=== PATIENT | female | born 1970 | race Caucasian/White ===

== ENCOUNTER 2016-07-10 14:38 | Inpatient (IN) | payer OTHER ==
[2016-07-10 14:43] VITALS: BMI 45.5
--- NOTE | 2016-07-10 14:45 | PDOC ---
Rapid Medical Evaluation Chief Complaint: Chest Pain Time Seen by Provider: 07/10/16 14:42 Medical Evaluation: Allergies Allergy/AdvReac Type Severity Reaction Status Date / Time aspirin Allergy Verified 04/09/16 12:21 azithromycin [From Zithromax] Allergy Verified 04/09/16 12:21 buspirone HCl [From BuSpar] Allergy Verified 04/09/16 12:21 codeine Allergy Verified 04/09/16 12:21 codeine phosphate Allergy Verified 04/09/16 12:21 [From Tylenol-Codeine] diphenhydramine HCl Allergy Verified 04/09/16 12:21 [From Benadryl] fexofenadine HCl Allergy Verified 04/09/16 12:21 [From Lynette] ibuprofen [From Motrin] Allergy Verified 04/09/16 12:21 Penicillins Allergy Verified 04/09/16 12:21 terfenadine [From Seldane] Allergy Verified 04/09/16 12:21 07/10/16 14:43 I have performed a brief in-person evaluation of this patient. The patient presents with a chief complaint of: chest pain, asthma. pt is an active smoker who presents with chest pain x 3 days, palpitations post albuterol use. Pertinent physical exam findings: obese female, no respiratory distress, no wheezing, + slightly anxious I have ordered the following: labs, troponin, cxr, ecg The patient will proceed to the ED for further evaluation.
[2016-07-10] MEDS ORDERED: ALBUTEROL SO4 2.5/IPRATROPIUM 0.5 INH SOL 3 ML VIAL.NEB. NEB ONE (14:47)
[2016-07-10] MEDS ORDERED: IPRATROPIUM BR 0.02% 0.5 MG/2.5 ML VIAL.NEB. NEB ONE (14:47)
[2016-07-10 15:39] LABS: BASOPHIL 0.7 % (0-2.0); EOSINOPHIL 0.9 % (0-4.5); MCH 28.1 pg (25.7-33.7); MCHC 34.2 g/dl (32.0-36.0); MEAN CELL VOLUME 81.9 fl (80-96); MEAN PLT VOLUME 7.5 fl (7.5-11.1); NEUTROPHILS 59.2 % (42.8-82.8); PLATELET COUNT 247 K/MM3 (134-434); RDW 13.5 % (11.6-15.6); WHITE BLOOD COUNT 7.6 K/mm3 (4.0-10.0)
[2016-07-10] MEDS ORDERED: methylPREDNISolone NA SUCC 125 MG/2 ML VIAL IVPB ONE (15:42)
--- NOTE | 2016-07-10 15:47 | PDOC ---
History of Present Illness - History of Present Illness Initial Comments: 07/10/16 15:53 The patient is a 46 year old female with a significant past medical hx of asthma , mitral valve prolapse, and hyperthyroidism (PTU) who presents to the ED complaining of constant chest pain for three days. The patient reports she has associated SOB. The patient describes her chest pain as stabbing and is localized to the middle of her chest radiating towards her left back. The patient notes her pain is exacerbated with eating and inspiration. The patient reports she took Tylenol yesterday and her pain went away completely. She reports once the Tylenol wore off the pain came back. The patient notes she has had several episodes of bronchitis since April and has been recently coughing. She reports she used her asthma pump this morning and was able to breathe better after the treatment, but started to feel palpitations. The patient denies recent travel/surgeries/immobility, lower extremity edema, calf pain or tenderness, hormone use, personal or family history of thrombosis. The patient denies fever, chills, abdominal pain, nausea, vomiting Social: Smokes cigarettes <Nati Bolanos - Last Filed: 07/10/16 16:20> <Jorgito Chavez - Last Filed: 07/10/16 16:44> - General Chief Complaint: Chest Pain Stated Complaint: CHEST PAIN Time Seen by Provider: 07/10/16 14:42 Past History <Nati Bolanos - Last Filed: 07/10/16 16:20> - Past Medical History Anemia: Yes Asthma: Yes Cardiac Disorders: Yes (heart murmer, leaky valve) Diabetes: Yes Psychiatric Problems: Yes (depression) Thyroid Disease: Yes - Surgical History Cholecystectomy: Yes - Psycho/Social/Smoking Cessation Hx Anxiety: Yes Suicidal Ideation: No Smoking History: Current some day smoker Have you smoked in the past 12 months: Yes Number of Cigarettes Smoked Daily: 20 Information on smoking cessation initiated: No Hx Alcohol Use: No Drug/Substance Use Hx: No Substance Use Type: None <Jorgito Chavez - Last Filed: 07/10/16 16:44> - Past Medical History Allergies/Adverse Reactions: Allergies Allergy/AdvReac Type Severity Reaction Status Date / Time aspirin Allergy Verified 07/10/16 14:45 azithromycin [From Zithromax] Allergy Verified 07/10/16 14:45 buspirone HCl [From BuSpar] Allergy Verified 07/10/16 14:45 codeine Allergy Verified 07/10/16 14:45 codeine phosphate Allergy Verified 07/10/16 14:45 [From Tylenol-Codeine] diphenhydramine HCl Allergy Verified 07/10/16 14:45 [From Benadryl] fexofenadine HCl Allergy Verified 07/10/16 14:45 [From Lynette] ibuprofen [From Motrin] Allergy Verified 07/10/16 14:45 Penicillins Allergy Verified 07/10/16 14:45 terfenadine [From Seldane] Allergy Verified 07/10/16 14:45 Home Medications: Ambulatory Orders Famotidine [Pepcid] 20 mg PO DAILY #30 tablet 04/09/16 Nitrofurantoin Monohyd/M-Cryst [Macrobid -] 100 mg PO BID #14 capsule 04/09/16 Review of Systems - Review of Systems Able to Perform ROS?: Yes Comments:: 07/10/16 15:53 CONSTITUTIONAL: Absent: fever, chills, diaphoresis, generalized weakness, malaise, loss of appetite HEENT: Absent: rhinorrhea, nasal congestion, throat pain, throat swelling, difficulty swallowing, mouth swelling, ear pain, eye pain, visual Changes CARDIOVASCULAR: +Chest pain, palpitations. Absent: syncope, irregular heart rate, lightheadedness, peripheral edema RESPIRATORY: +Shortness of breath, cough. Absent: wheezing, stridor, hemoptysis GASTROINTESTINAL: Absent: abdominal pain, abdominal distension, nausea, vomiting, diarrhea, constipation, melena, hematochezia GENITOURINARY: Absent: dysuria, frequency, urgency, hesitancy, hematuria, flank pain, genital pain MUSCULOSKELETAL: Absent: myalgia, arthralgia, joint swelling SKIN: Absent: rash, itching, pallor HEMATOLOGIC/IMMUNOLOGIC: Absent: easy bleeding, easy bruising, lymphadenopathy, frequent infections ENDOCRINE: Absent: unexplained weight gain, unexplained weight loss, heat intolerance, cold intolerance NEUROLOGIC: Absent: headache, focal weakness or paresthesias, dizziness, unsteady gait, seizure, mental status changes, bladder or bowel incontinence PSYCHIATRIC: Absent: anxiety, depression, suicidal or homicidal ideation, hallucinations. <Nati Bolanos - Last Filed: 07/10/16 16:20> *Physical Exam - Vital Signs Last Vital Signs Temp Pulse Resp BP Pulse Ox 98.3 F 108 H 20 142/90 96 07/10/16 14:40 07/10/16 14:40 07/10/16 14:40 07/10/16 14:40 07/10/16 14:40 - Physical Exam Comments: 07/10/16 15:54 GENERAL: Well developed, well nourished. Awake and alert. In no acute distress. HEENT: Normocephalic, atraumatic. PERRLA, EOMI. No conjunctival pallor. Sclera are non- icteric. Moist mucous membranes. Oropharynx is clear. NECK: Supple. Full ROM. No JVD. Carotid pulses 2+ and symmetric, without bruits. No thyromegaly. No lymphadenopathy. CARDIOVASCULAR: Regular rate and rhythm. No murmurs, rubs, or gallops. Distal pulses are 2+ and symmetric. PULMONARY: No evidence of respiratory distress. Lungs clear to auscultation bilaterally. No wheezing, rales or rhonchi. ABDOMINAL: Soft. Non-tender. Non-distended. No rebound or guarding. No organomegaly. Normoactive bowel sounds. MUSCULOSKELETAL Normal range of motion at all joints. No bony deformities or tenderness. No CVA tenderness. EXTREMITIES: No cyanosis. No clubbing. No edema. No calf tenderness. SKIN: Warm and dry. Normal capillary refill. No rashes. No jaundice. NEUROLOGICAL: Alert, awake, appropriate. Cranial nerves 2-12 intact. No deficits to light touch and temperature in face, upper extremities and lower extremities. No motor deficits in the in face, upper extremities and lower extremities. PSYCHIATRIC: Cooperative. Good eye contact. Appropriate mood and affect. <Nati Bolanos - Last Filed: 07/10/16 16:20> - Vital Signs Last Vital Signs Temp Pulse Resp BP Pulse Ox 98.3 F 108 H 20 142/90 96 07/10/16 14:40 07/10/16 14:40 07/10/16 14:40 07/10/16 14:40 07/10/16 14:40 <Jorgito Chavez - Last Filed: 07/10/16 16:44> ED Treatment Course - LABORATORY CBC & Chemistry Diagram: 07/10/16 15:32 07/10/16 15:32 - Medications Given in the ED: ED Medications Discontinued Medications Generic Name Dose Route Start Last Admin Trade Name Freq PRN Reason Stop Dose Admin Albuterol/Ipratropium 1 amp 07/10/16 14:47 07/10/16 14:58 Duoneb - NEB 07/10/16 14:48 1 amp ONCE ONE Administration Ipratropium Steen 1 amp 07/10/16 14:47 07/10/16 14:58 Atrovent 0.02% Nebulizer - NEB 07/10/16 14:48 1 amp ONCE ONE Administration <Nati Bolanos - Last Filed: 07/10/16 16:20> - LABORATORY CBC & Chemistry Diagram: 07/10/16 15:32 07/10/16 15:32 - RADIOLOGY Radiology Studies Ordered: Category Date Time Status CHEST X-RAY PORTABLE* [RAD] Stat Radiology 07/10/16 15:37 Ordered - Medications Given in the ED: ED Medications Discontinued Medications Generic Name Dose Route Start Last Admin Trade Name Freq PRN Reason Stop Dose Admin Albuterol/Ipratropium 1 amp 07/10/16 14:47 07/10/16 14:58 Duoneb - NEB 07/10/16 14:48 1 amp ONCE ONE Administration Ipratropium Steen 1 amp 07/10/16 14:47 07/10/16 14:58 Atrovent 0.02% Nebulizer - NEB 07/10/16 14:48 1 amp ONCE ONE Administration <Jorgito Chavez - Last Filed: 07/10/16 16:44> Medical Decision Making - Medical Decision Making 07/10/16 15:46 EKG noted: Normal sinus rhythm at 90, borderline left axis deviation, no ST changes The patient is well-appearing, and in no acute distress Differential diagnosis does include pulmonary embolism Her wells score is 1.5 (heart rate) Of note, I did discuss the possibility of a need for CT chest with IV contrast, should her d-dimer be positive She states that she will adamantly refused contrast administration, because her brother after receiving IV contrast She also refuses aspirin and stats that she has a severe allergy She refuses Plavix as well 07/10/16 16:19 Chest x-ray emergency Department interpretation: No acute cardiopulmonary disease CBC noted Chemistries, d-dimer pending 07/10/16 16:27 Chemistries and cardiac enzymes noted, with negative troponin D-dimer pending 07/10/16 16:43 D-dimer noted, positive She continues to adamantly refuse IV contrast She does agree to empiric treatment of possible pulmonary embolism with Lovenox She understands the risks and benefits, which I explained to her using lay terminology She will consents to ventilation perfusion scan when it is available Clinical impression: Chest pain Elevated d-dimer Possible pulmonary embolism Case discussed in detail with admitting provider including history, physical exam and ancillary studies. Admitting physician has assumed care for the patient, will follow all pending diagnostics and will complete the evaluation and treatment. A portion of this note was documented by scribe services under my direction. I have reviewed the details of the note, within reason, and agree with the documentation with the following case summary and management plan written by me. <Jorgito Chavez - Last Filed: 07/10/16 16:44> *DC/Admit/Observation/Transfer - Attestations Scribe Attestion: 07/10/16 15:53 Documentation prepared by Nati Bolanos, acting as medical technologist microbiology for Jorgito Chavez MD/DO. <Nati Bolanos - Last Filed: 07/10/16 16:20> - Discharge Dispostion Admit: Yes <Jorgito Chavez - Last Filed: 07/10/16 16:44> Diagnosis at time of Disposition: Chest pain - Referrals Referrals: Miladis Dillon MD [Primary Care Provider] -
--- NOTE | 2016-07-10 15:55 | EKG ---
Test Reason : Blood Pressure : / mmHG Vent. Rate : 089 BPM Atrial Rate : 089 BPM P-R Int : 156 ms QRS Dur : 086 ms QT Int : 364 ms P-R-T Axes : 031 -15 024 degrees QTc Int : 442 ms NORMAL SINUS RHYTHM NORMAL ECG WHEN COMPARED WITH ECG OF 09-APR-2016 12:20, NO SIGNIFICANT CHANGE WAS FOUND Confirmed by LYDIA BARRAGAN MD ([id number]) on 07/10/2016 3:54:56 PM Referred By: Confirmed By:LYDIA BARRAGAN MD
[2016-07-10 16:04] LABS: ALBUMIN 3.5 g/dl (3.4-5.0); ANION GAP 10 (8-16); BILIRUBIN,TOTAL 0.2 mg/dL (0.2-1.0); CALCIUM 9.2 mg/dL (8.5-10.1); CO2 26 mmol/L (21-32); CREATININE 0.6 mg/dL (0.55-1.02); GLUCOSE,RANDOM 126 mg/dL (74-106); SGOT/AST 15 U/L (15-37); SGPT/ALT 28 U/L (12-78); TOT PROT 7.7 g/dl (6.4-8.2)
[2016-07-10 16:06] LABS: ALK PHOS 119 U/L (45-117); TROPONIN I < 0.02 ng/ml (0.00-0.05)
[2016-07-10] MEDS ORDERED: methylPREDNISolone NA SUCC 125 MG/2 ML VIAL ONE (16:06)
[2016-07-10] MEDS ORDERED: POTASSIUM CHLORIDE TABS 20 MEQ TABLET.ER (FP) PO ONE ×2 (16:27→16:42)
[2016-07-10 16:35] LABS: THYROID STIMULATING HORMONE < 0.01 uIU/ml (0.358-3.74)
[2016-07-10] MEDS ORDERED: ENOXAPARIN NA (PORCINE) 100 MG/1 ML DISP.SYRIN SQ ONE ×2 (16:43→17:24)
[2016-07-10 16:46] LABS: FREE T4 1.18 ng/dl (0.76-1.46)
[2016-07-10 16:48] LABS: INR 0.96 (0.82-1.09); PROTHROMBIN TIME (PATIENT) 10.6 SEC (9.98-11.88)
--- NOTE | 2016-07-10 18:55 | PN ---
Teaching Attending Note Name of Resident: Marilu Emanuel ATTENDING PHYSICIAN STATEMENT I saw and evaluated the patient. I reviewed the resident's note and discussed the case with the resident. I agree with the resident's findings and plan as documented. SUBJECTIVE: OBJECTIVE: Vital Signs Period Temp Pulse Resp BP Sys/Batres Pulse Ox Last 24 Hr 98.3 F 108 20 142/90 96 ASSESSMENT AND PLAN:
[2016-07-10] MEDS: ALBUTEROL SO4 0.083% IH SOL 2.5 MG/3 ML VIAL.NEB. NEB SCH (23:33)
--- NOTE | 2016-07-11 00:04 | HP ---
CHIEF COMPLAINT: SOB, chest pain PCP: 2 [facility] HISTORY OF PRESENT ILLNESS: 46 yr old woman with HTN, pre-diabetes, thyroid nodules/hyperthyroidism, gastritis, presents c/o chest pain 8/10, stabbing-like, midsternum, radiating to left para-sternum(one episode to back), continuos but relived with tylenol, nonpositional, a/w shortness of breath. Pain started Thursday, does not recall what she was doing at the time, cannot name alleviating or exacerbating factors. She initially thought it was acid reflux due to being midsternal location and at times radiating down to epigastrium This morning she used the bathroom, when she came out she felt "a chill" and felt the chest pain be worse than it had been previously. She has had chest pain in the past but this is different because it is more intense. She usually gets chest pain when she is stressed, in the same location. She felt the shortness of breath worse after walking around on thursday with her family and intermittently since then but is unable to name alleviating or exacerbating factors. She has headaches at times, throbbing behind her right eye, located in the occipatal area radiationg anteriorly, alleviated with sleeping - usually occurs when she has elevated blood pressure (doesn't recall how high) Uses advair intermittely, triggered by seasonal allergies, no hx of intubations. denies chest trauma. ER course was notable for: (1) d-dimer elevated (2) pt declined CTA (3) lovenox Recent Travel: none, last care ride trip to [place] in the january PAST MEDICAL HISTORY: anemia, HTN, pre-diabetes, thyroid nodules(last u/s of thyroid 09/2011) hyperthyroidism (was on PTU but couldn't tolerate GI se, was on methamazole but stopped taking it) gastritis heart murmur post-menopausal PAST SURGICAL HISTORY: cholecystectomy 1988 2 c-sections cervix "cancer cells frozen off" Social History: 11 children Smokin pk/day for 4 yrs, had quit for 18 yrs, prior she smoked for 10 yrs 1 pk /day Alcohol: rare Drugs: denies Family History: sister with breast cancer age 37, sister 33 cervical cancer, mother with "cervical cancer cell", "many others with cancers" Allergies aspirin Allergy (Verified 07/10/16 14:45) - trouble breathing azithromycin [From Zithromax] Allergy (Verified 07/10/16 14:45) - trouble breathing buspirone HCl [From BuSpar] Allergy (Verified 07/10/16 14:45)- trouble breathing codeine Allergy (Verified 07/10/16 14:45) - rash on throat codeine phosphate [From Tylenol-Codeine] Allergy (Verified 07/10/16 14:45) - GI upset diphenhydramine HCl [From Benadryl] Allergy (Verified 07/10/16 14:45) - "hyperactive" fexofenadine HCl [From Lynette] Allergy (Verified 07/10/16 14:45) "breathing problem" ibuprofen [From Motrin] Allergy (Verified 07/10/16 14:45) Penicillins Allergy (Verified 07/10/16 14:45) - Rash on neck and throat terfenadine [From Seldane] Allergy (Verified 07/10/16 14:45) - trouble breathing HOME MEDICATIONS: Home Medications Medication Instructions Recorded Albuterol 0.083% Nebulizer Marcelina 1 neb NEB QID 07/10/16 [Ventolin 0.083%] REVIEW OF SYSTEMS CONSTITUTIONAL: Present:chills, weight change Absent: fever, diaphoresis, generalized weakness, malaise, loss of appetite, HEENT: Present: difficulty swallowing, - occasional to solids, which improves when she drinks water, visual changes - past few months has noticed blurred vision Absent: rhinorrhea, nasal congestion, throat pain, throat swelling, mouth swelling, ear pain, eye pain, CARDIOVASCULAR: Present: chest pain, Absent: syncope, palpitations, irregular heart rate, lightheadedness, peripheral edema RESPIRATORY: Present: cough, productive of watery white sputum, shortness of breath, Absent: dyspnea with exertion, orthopnea, wheezing, stridor, hemoptysis GASTROINTESTINAL: Absent: abdominal pain, abdominal distension, nausea, vomiting, diarrhea, constipation, melena, hematochezia GENITOURINARY: Absent: dysuria, frequency, urgency, hesitancy, hematuria, flank pain, genital pain MUSCULOSKELETAL: Absent: myalgia, arthralgia, joint swelling, back pain, neck pain SKIN: Absent: rash, itching, pallor HEMATOLOGIC/IMMUNOLOGIC: Absent: easy bleeding, easy bruising, lymphadenopathy, frequent infections ENDOCRINE: Present: heat intolerance, cold intolerance Absent: unexplained weight gain, unexplained weight loss, NEUROLOGIC: Present:headache Absent: , focal weakness or paresthesias, dizziness, unsteady gait, seizure, mental status changes, bladder or bowel incontinence PSYCHIATRIC: Present: anxiety Absent: , depression, suicidal or homicidal ideation, hallucinations. PHYSICAL EXAMINATION Vital Signs - 24 hr 07/10/16 19:25 Temperature 98 F Pulse Rate [ 95 H Left Radial] Respiratory 18 Rate Blood Pressure 156/66 [Left Arm] O2 Sat by Pulse 96 Oximetry (%) GENERAL: Awake, alert, and fully oriented, in no acute distress. HEAD: Normal with no signs of trauma. EYES: Pupils equal, round and reactive to light, extraocular movements intact, sclera anicteric, conjunctiva clear. No lid lag. EARS, NOSE, THROAT: Ears normal, nares patent, oropharynx clear without exudates. Moist mucous membranes. nontender thyromegally R>L NECK: Normal range of motion, supple without JVD LUNGS: Breath sounds equal, clear to auscultation bilaterally. No wheezes, and no crackles. No accessory muscle use. HEART: Regular rate and rhythm, normal S1 and S2 with soft systolic murmur, rub or gallop. ABDOMEN: Soft, obese, tender in LUQ and left flank. not distended, oblique well- healed scar in right lower quad, tender in right ingual, normoactive bowel sounds, no guarding, no rebound, no masses. MUSCULOSKELETAL: Normal range of motion at all joints. No bony deformities or tenderness. No CVA tenderness. UPPER EXTREMITIES: 2+ pulses, warm, well-perfused. No cyanosis. No clubbing. Cap refill <2 seconds. No peripheral edema. LOWER EXTREMITIES: 2+ pulses, warm, well-perfused. No calf tenderness. No peripheral edema. No erythema. NEUROLOGICAL: Cranial nerves II-XII intact. Normal speech. Normal gait. PSYCHIATRIC: Cooperative. Good eye contact. Appropriate mood and affect. SKIN: Warm, dry, normal turgor, no rashes or lesions noted. Laboratory Results - last 24 hr 07/10/16 07/10/16 07/10/16 15:22 15:22 15:32 WBC 7.6 RBC 4.97 Hgb 13.9 Hct 40.7 MCV 81.9 MCHC 34.2 RDW 13.5 Plt Count 247 MPV 7.5 Neutrophils % 59.2 Lymphocytes % 34.8 Monocytes % 4.4 Eosinophils % 0.9 Basophils % 0.7 INR 0.96 D-Dimer 1016 H Sodium Potassium Chloride Carbon Dioxide Anion Gap BUN Creatinine Creat Clearance w eGFR Random Glucose Calcium Total Bilirubin AST ALT Alkaline Phosphatase Creatine Kinase CK-MB (CK-2) Troponin I B-Natriuretic Peptide Total Protein Albumin TSH Free T4 07/10/16 15:32 WBC RBC Hgb Hct MCV MCHC RDW Plt Count MPV Neutrophils % Lymphocytes % Monocytes % Eosinophils % Basophils % INR D-Dimer Sodium 142 Potassium 3.4 L Chloride 106 Carbon Dioxide 26 Anion Gap 10 BUN 9 Creatinine 0.6 Creat Clearance w eGFR > 60 Random Glucose 126 H D Calcium 9.2 Total Bilirubin 0.2 D AST 15 ALT 28 Alkaline Phosphatase 119 H Creatine Kinase 158 D CK-MB (CK-2) < 1.000 Troponin I < 0.02 B-Natriuretic Peptide 25.78 Total Protein 7.7 Albumin 3.5 TSH < 0.01 L Free T4 1.18 ASSESSMENT/PLAN: 46 yr old woman with obesity, HTN, pre-diabetes presents with sob, chest pain without for 3 days found to have elevate d-dimer. - pt has family hx of cancer, last mammogram 12/2014 (bi-rads 1, negative) - low suspicion for cardiac cause: no acute ischemic changes on EKG, NSR or for infectious lung pathology due to clear chest xray - higher suspicion for hyperthyroidism as cause of tachycardia given TSH<0.01, although free t4 is normal #r/o PE given elevated d-dimer, wells 1.5(hr rate) - patient not amenable to CTA because she doesn't want contrast - V/Q scan in the morning, placed NPO at midnight in anticipation - Dr. Trinh consulted - duplex scan b/l legs to r/o DVT - lovenix 100mg BID #LUQ pain - ultrasound of abdomen to rule out pancreatic abnormality, concern due to family hx of cancer and elevated d-dimer --(last abdominal 12/16 without pathology), --seen in ED 08/17 with LUQ was dx with gastritis, felt better with PPI at that time - consider GI consult #HTN - uncontrolled, not on home medications - monitor if elevated start on norvasc #prediabetic - A1c in the AM #DVT - on lovenox for PE #diet - npo for v/q scan Visit type - Emergency Visit Emergency Visit: Yes ED Registration Date: 07/10/16 Care time: The patient presented to the Emergency Department on the above date and was hospitalized for further evaluation of their emergent condition. - New Patient This patient is new to me today: Yes Date on this admission: 07/10/16 - Critical Care Critical Care patient: No
[2016-07-11] MEDS: ALBUTEROL SO4 0.083% IH SOL 2.5 MG/3 ML VIAL.NEB. NEB SCH (07:25)
[2016-07-11 08:16] LABS: ALBUMIN 3.5 g/dl (3.4-5.0); ANION GAP 12 (8-16); CALCIUM 9.3 mg/dL (8.5-10.1); CO2 23 mmol/L (21-32)
[2016-07-11 08:21] LABS: ALK PHOS 109 U/L (45-117); BILIRUBIN,TOTAL 0.4 mg/dL (0.2-1.0); CREATININE 0.6 mg/dL (0.55-1.02); GLUCOSE,RANDOM 138 mg/dL (74-106); SGOT/AST 10 U/L (15-37); SGPT/ALT 26 U/L (12-78); TOT PROT 7.6 g/dl (6.4-8.2)
[2016-07-11 08:29] VITALS: BP 133/82; PULSE 80; TEMP 98.5
[2016-07-11] MEDS ORDERED: ENOXAPARIN NA (PORCINE) 100 MG/1 ML DISP.SYRIN SQ SCH (10:00)
--- NOTE | 2016-07-11 14:49 | DS ---
Physical Exam: SUBJECTIVE: Patient seen OBJECTIVE: Vital Signs Period Temp Pulse Resp BP Sys/Batres Pulse Ox Last 24 Hr 98 F-98.8 F 80-101 18-18 130-161/64-82 96-98 PHYSICAL EXAM Left AMA refused exam LABS Laboratory Results - last 24 hr 07/11/16 07/11/16 05:35 05:35 Sodium 141 Potassium 3.9 Chloride 106 Carbon Dioxide 23 Anion Gap 12 BUN 11 D Creatinine 0.6 Creat Clearance w eGFR > 60 Random Glucose 138 H Hemoglobin A1c % 5.9 Calcium 9.3 Total Bilirubin 0.4 D AST 10 L D ALT 26 Alkaline Phosphatase 109 Total Protein 7.6 Albumin 3.5 HOSPITAL COURSE: Date of Admission:07/10/16 Date of Discharge: 07/11/16 46F admitted with shortness of breath found to have an elevated D dimer admitted for work up of possible Pulmonary embolism. She refused CTA because she states her brother from contrast. Had an abdominal US for ABD pain which showed fatty liver. duplex of b/l lower extremities was negative for DVT. She was started on therapeutic dose lovenox pending V/Q scan. She did not want to have the V/Q scan done anymore and wanted to leave. Risks such as PE shortness of breath sudden cardiac and sudden explained. Patient stated she wanted to go to [facility] Minutes to complete discharge: 30 Discharge Summary Reason For Visit: CHEST PAIN Condition: Guarded - Instructions Referrals: Miladis Dillon MD [Primary Care Provider] - Disposition: AGAINST MEDICAL ADVICE - Home Medications Comprehensive Discharge Medication List: Ambulatory Orders Albuterol 0.083% Nebulizer Marcelina [Ventolin 0.083%] 1 [facility] NEB QID 07/10/16 This patient is new to me today: Yes Date on this admission: 07/11/16 Emergency Visit: Yes ED Registration Date: 07/10/16 Care time: The patient presented to the Emergency Department on the above date and was hospitalized for further evaluation of their emergent condition. Critical Care patient: No - Discharge Referral Referred to [facility] Med P.C.: No
--- NOTE | 2016-07-11 19:09 | HOSP ---
Subjective - Review of Symptoms Events since last encounter: pt left AMA before I got to see and evaluate her Physical Examination Vital Signs: Labs: CBC, BMP 07/11/16 05:35
== END 2016-07-11 11:45 | disposition left against medical advice (07) | DRG 203 ==
LOC: JER 14:38 → JERBED 16:45 → J4W 21:18
PROVIDERS: ADMIT Internal Medicine; ATTEND Internal Medicine
DX: R07.89 Other chest pain (principal); J45.909 Unspecified asthma, uncomplicated; I34.1 Nonrheumatic mitral (valve) prolapse; E05.80 Other thyrotoxicosis without thyrotoxic crisis or storm; F32.89 Other specified depressive episodes; D64.9 Anemia, unspecified; E04.1 Nontoxic single thyroid nodule; R10.11 Right upper quadrant pain; R73.03 Prediabetes; K76.0 Fatty (change of) liver, not elsewhere classified; K29.60 Other gastritis without bleeding; I10 Essential (primary) hypertension; E66.01 Morbid (severe) obesity due to excess calories; Z68.42 Body mass index [BMI] 45.0-49.9, adult; Z71.3 Dietary counseling and surveillance
CPT/HCPCS: 36415; 71010-TC; 76700-TC; 80053; 82550; 82553; 83036; 83880; 84439; 84443; 84481; 84484; 85025; 85379; 85610; 93005; 93010; 93970-TC; 94640; 99284-25

== ENCOUNTER 2018-02-17 22:19 | Emergency (ER) | payer OTHER ==
[2018-02-17 22:23] VITALS: BP 181/73; PULSE 102; TEMP 98.2; BMI 42.1
[2018-02-17] MEDS ORDERED: KETOROLAC TROMETHAMINE 60 MG/2 ML VIAL IM ONE (23:43)
[2018-02-17] MEDS ORDERED: KETOROLAC TROMETHAMINE 60 MG/2 ML VIAL ONE (23:46)
--- NOTE | 2018-02-18 00:16 | PDOC ---
History of Present Illness - General Chief Complaint: Injury Stated Complaint: RT LEG INJURY Time Seen by Provider: 02/17/18 23:12 - History of Present Illness Initial Comments: 02/18/18 00:16 CHIEF COMPLAINT: knee pain HISTORY OF PRESENT ILLNESS: 47 yo F with hx of HTN, pre-diabetes, thyroid nodules/hyperthyroidism, gastritis presents to ED with pain to R knee. Patient reports that she has had knee pain for the past 3 weeks but today as she was walking out of a store, there was a "dip or something" in the ground and she felt a "tearing pain" to her R knee when she walked into the dip. No recent travel or sick contacts. PAST MEDICAL HISTORY: HTN, prediabetes, hyperthyroidism, gastritis FAMILY HISTORY: Denies SOCIAL HISTORY: Denies tobacco, alcohol, illicit drug use. SURGICAL HISTORY: Denies ALLERGIES: aspirin, azithromycin, buspirone, codeine, ibuprofen, benadryl REVIEW OF SYSTEMS General/Constitutional: Denies fever or chills. Denies weakness, weight change. HEENT: Denies change in vision. Denies ear pain or discharge. Denies sore throat. Cardiovascular: Denies chest pain or shortness of breath. Respiratory: Denies cough, wheezing, or hemoptysis. Gastrointestinal: Denies nausea, vomiting, diarrhea or constipation. Denies rectal bleeding. Genitourinary: Denies dysuria, frequency, or change in urination. Musculoskeletal: R knee pain x 3 weeks, worse today. Skin and breasts: Denies rash or easy bruising. Neurologic: Denies headache, vertigo, loss of consciousness, or loss of sensation. Psychiatric: Denies depression or anxiety. PHYSICAL EXAM General Appearance: Well-appearing, appropriately dressed. No apparent distress , no intoxication. HEENT: EOMI, PERRLA, normal ENT inspection, normal voice, TMs normal, pharynx normal. No conjunctival pallor. No photophobia, scleral icterus. Neck: Supple. Trachea midline. No tenderness, rigidity, carotid bruit, stridor , lymphadenopathy, or thyromegaly. Respiratory/Chest: Lungs CTAB. No shortness of breath, chest tenderness, respiratory distress, accessory muscle use. No crackles, rales, rhonchi, stridor , wheezing, dullness Cardiovascular: RRR. S1, S2. No JVD, murmur, bradycardia, tachycardia. Vascular Pulses: Dorsalis-Pedis (R): 2+, Dorsalis-Pedis (L): 2+ Gastrointestinal/Abdominal: Normal bowel sounds. Abdomen soft, non-distended. No tenderness or rebound tenderness. No organomegaly, pulsatile mass, guarding , hernia, hepatomegaly, splenomegaly. Lymphatic: No adenopathy, tenderness. Musculoskeletal/Extremities: +anterior drawer test to R knee. Normal inspection. FROM of all extremities, normal capillary refill. Pelvis Stable. No CVA tenderness. No tenderness to extremities, pedal edema, swelling, erythema or deformity. Integumentary: Appropriate color, dry, warm. No cyanosis, erythema, jaundice or rash Neurologic: code inspector [id number] intact. Fully oriented, alert. Appropriate mood/affect. Motor strength 5/5. No appreciable EOM palsy, facial droop or sensory deficit. 02/18/18 00:17 Past History - Past Medical History Allergies/Adverse Reactions: Allergies Allergy/AdvReac Type Severity Reaction Status Date / Time aspirin Allergy Verified 02/17/18 22:22 azithromycin [From Zithromax] Allergy Verified 02/17/18 22:22 buspirone HCl [From BuSpar] Allergy Verified 02/17/18 22:22 codeine Allergy Verified 02/17/18 22:22 codeine phosphate Allergy Verified 02/17/18 22:22 [From Tylenol-Codeine] diphenhydramine HCl Allergy Verified 02/17/18 22:22 [From Benadryl] fexofenadine HCl Allergy Verified 02/17/18 22:22 [From Lynette] ibuprofen [From Motrin] Allergy Verified 02/17/18 22:22 Penicillins Allergy Verified 02/17/18 22:22 terfenadine [From Seldane] Allergy Verified 02/17/18 22:22 Home Medications: Ambulatory Orders Albuterol 0.083% Nebulizer Marcelina [Ventolin 0.083%] 1 neb NEB QID 07/10/16 Diclofenac Sodium [Voltaren -] 75 mg PO BID #14 tablet. 02/18/18 Tramadol HCl 50 mg PO TID PRN #12 tablet MDD 3 02/18/18 Anemia: Yes Asthma: Yes Cardiac Disorders: Yes (heart murmer, leaky valve) COPD: No Diabetes: Yes HTN: Yes Psychiatric Problems: Yes (depression) Thyroid Disease: Yes - Surgical History Cholecystectomy: Yes - Suicide/Smoking/Psychosocial Hx Smoking History: Current every day smoker Have you smoked in the past 12 months: Yes Number of Cigarettes Smoked Daily: 20 Information on smoking cessation initiated: No 'Breaking Loose' booklet given: 07/10/16 Hx Alcohol Use: No Drug/Substance Use Hx: No Substance Use Type: None *Physical Exam - Vital Signs Last Vital Signs Temp Pulse Resp BP Pulse Ox 98.2 F 102 H 18 181/73 H 100 02/17/18 22:20 02/17/18 22:20 02/17/18 22:20 02/17/18 22:20 02/17/18 22:20 ED Treatment Course - RADIOLOGY Radiology Studies Ordered: Category Date Time Status KNEE 3 POS-RIGHT [RAD] Stat Radiology 02/18/18 00:11 Taken DUPLEX VASCUL US-1 LEG [US] Stat Ultrasound 02/17/18 23:44 Ordered - Medications Given in the ED: ED Medications Discontinued Medications Generic Name Dose Route Start Last Admin Trade Name Freq PRN Reason Stop Dose Admin Ketorolac Tromethamine 60 mg 02/17/18 23:43 02/17/18 23:51 Toradol Injection - IM 02/17/18 23:44 60 mg ONCE ONE Administration Medical Decision Making - Medical Decision Making 02/18/18 00:19 47 yo F with hx of HTN, pre-diabetes, thyroid nodules/hyperthyroidism, gastritis presents to ED with pain to R knee. Clinical presentation consistent with ligamental injury, but given hx of elevated d-dimer on last visit and patient AMA'ed, will r/o DVT. -R knee x-ray -R leg ultrasound 02/18/18 02:30 imaging negative. Advised patient to take medication as prescribed and follow up with orthopedics within the next week for further evaluation and management of knee pain. Advised patient of signs and symptoms for return to ED. Patient verbalized understanding and agrees to plan. *DC/Admit/Observation/Transfer Diagnosis at time of Disposition: Knee pain, right anterior - Discharge Dispostion Disposition: HOME Condition at time of disposition: Stable Decision to Admit order: No - Prescriptions Prescriptions: Diclofenac Sodium [Voltaren -] 75 mg PO BID #14 tablet. Tramadol HCl 50 mg PO TID PRN #12 tablet MDD 3 PRN Reason: Pain - Referrals Referrals: Petros Napier MD [Primary Care Provider] - Segun Mancia MD [Staff Physician] - - Patient Instructions Additional Instructions: Please take medications as prescribed. Follow up with orthopedics within the next 2-3 days for further evaluation and possibly physical therapy or MRI. If you develop any shortness of breath, chest pain, palpitations, or any new or worsening symptoms, please return to the ER. - Post Discharge Activity
--- NOTE | 2018-02-18 01:20 | PDOC ---
*Physical Exam - Vital Signs Last Vital Signs Temp Pulse Resp BP Pulse Ox 98.2 F 102 H 18 181/73 H 100 02/17/18 22:20 02/17/18 22:20 02/17/18 22:20 02/17/18 22:20 02/17/18 22:20 ED Treatment Course - Medications Given in the ED: ED Medications Discontinued Medications Generic Name Dose Route Start Last Admin Trade Name Freq PRN Reason Stop Dose Admin Ketorolac Tromethamine 60 mg 02/17/18 23:43 02/17/18 23:51 Toradol Injection - IM 02/17/18 23:44 60 mg ONCE ONE Administration Medical Decision Making - Medical Decision Making 02/18/18 01:20 Pt seen by Midlevel Provider under my direct supervision Pt interviewed and examined Ancillary studies reviewed I agree with plan as outlined by Midlevel Provider *DC/Admit/Observation/Transfer - Referrals Referrals: Petros Napier MD [Primary Care Provider] - - Patient Instructions - Post Discharge Activity
== END 2018-02-18 02:23 | disposition home or self-care (01) ==
LOC: JER 22:19 → JERFT 22:19 → JER 02-18 02:23
PROC: 3E0233Z Introduction of Anti-inflammatory into Muscle, Percutaneous Approach (ICD-10-PCS; principal; 2018-02-17)
DX: M25.561 Pain in right knee (principal); X50.1XXA Overexertion from prolonged static or awkward postures, initial encounter; Y93.89 Activity, other specified; Y92.512 Supermarket, store or market as the place of occurrence of the external cause; Y99.8 Other external cause status; I10 Essential (primary) hypertension; E05.90 Thyrotoxicosis, unspecified without thyrotoxic crisis or storm; R73.03 Prediabetes
CPT/HCPCS: 73562-TC-RT-FY; 93971-TC; 99282-25

== ENCOUNTER 2020-06-11 20:24 | Emergency (ER) | payer OTHER ==
[2020-06-11 20:31] VITALS: BP 167/91; PULSE 90; TEMP 98.4; BMI 39.1
[2020-06-11] MEDS ORDERED: ACETAMINOPHEN 500 MG TABLET (FP) PO ONE (22:09)
[2020-06-11] MEDS ORDERED: ACETAMINOPHEN 325 MG TABLET (FP) ONE (22:28)
== END 2020-06-11 23:13 | disposition home or self-care (01) ==
LOC: JER 20:24
DX: M94.0 Chondrocostal junction syndrome [Tietze] (principal); J06.9 Acute upper respiratory infection, unspecified
CPT/HCPCS: 71046-TC-FY; 93005; 93010; 99284-25; C9803; U0003

== ENCOUNTER 2020-06-28 13:28 | Emergency (ER) | payer OTHER ==
[2020-06-28 14:16] VITALS: BP 158/74; PULSE 102; TEMP 97.9; BMI 48.2
== END 2020-06-28 15:45 | disposition home or self-care (01) ==
LOC: JER 13:28
DX: M54.42 Lumbago with sciatica, left side (principal); K59.00 Constipation, unspecified
CPT/HCPCS: 99282-25

== ENCOUNTER 2020-10-08 19:55 | Emergency (ER) | payer OTHER ==
[2020-10-08 20:03] VITALS: BMI 41.0
[2020-10-08] MEDS ORDERED: ALBUTEROL SO4 2.5/IPRATROPIUM 0.5 INH SOL 3 ML VIAL.NEB. NEB SCH (20:45)
[2020-10-08 21:20] LABS: BASO % 0.7 % (0-2.0); EOS % 2.5 % (0-4.5); HEMATOCRIT 43.3 % (32.4-45.2); HEMOGLOBIN 14.6 GM/dL (10.7-15.3); LYMPH % 38.5 % (8-40); MCH 28.9 pg (25.7-33.7); MCHC 33.8 g/dl (32.0-36.0); MEAN CELL VOLUME 85.4 fl (80-96); MONO % 5.2 % (3.8-10.2); NEUT % 53.1 % (42.8-82.8); PLATELET COUNT 257 K/MM3 (134-434); RBC 5.07 M/mm3 (3.60-5.2); WHITE BLOOD COUNT 8.5 K/mm3 (4.0-10.0)
[2020-10-08 21:30] LABS: URINE APPEARANCE CLEAR; URINE BILIRUBIN NEGATIVE (NEGATIVE); URINE COLOR YELLOW; URINE GLUCOSE (UA) NEGATIVE (NEGATIVE); URINE KETONE NEGATIVE (NEGATIVE); URINE LEUK ESTERASE NEGATIVE (NEGATIVE); URINE NITRITE NEGATIVE (NEGATIVE); URINE PROTEIN NEGATIVE (NEGATIVE); URINE UROBILINOGEN 0.2 mg/dL (0.2-1.0)
[2020-10-08 21:35] LABS: ALBUMIN 3.6 g/dl (3.4-5.0); BLOOD UREA NITROGEN 10.9 mg/dL (7-18); CALCIUM 9.7 mg/dL (8.5-10.1)
[2020-10-08 21:39] LABS: CREATININE 0.6 mg/dL (0.55-1.3)
[2020-10-08 21:41] LABS: BILIRUBIN,TOTAL 0.2 mg/dL (0.2-1); TOT PROT 7.7 g/dl (6.4-8.2)
[2020-10-08 21:50] LABS: N-TERMINAL BNP 39.1 pg/ml (5-125)
[2020-10-08] MEDS ORDERED: PANTOPRAZOLE SODIUM 40 MG VIAL IVPUSH ONE (22:02)
[2020-10-08] MEDS ORDERED: ALBUTEROL SO4 2.5/IPRATROPIUM 0.5 INH SOL 3 ML VIAL.NEB. NEB ONE (22:08)
[2020-10-08] MEDS ORDERED: PANTOPRAZOLE SODIUM 40 MG/100 ML BAG IVPB ONE (22:08)
[2020-10-09 00:32] VITALS: BP 142/78; PULSE 76; TEMP 99.1
== END 2020-10-09 00:32 | disposition home or self-care (01) ==
LOC: JER 19:55
PROC: 3E0F7GC Introduction of Other Therapeutic Substance into Respiratory Tract, Via Natural or Artificial Opening (ICD-10-PCS; principal; 2020-10-08)
PROC: 3E033GC Introduction of Other Therapeutic Substance into Peripheral Vein, Percutaneous Approach (ICD-10-PCS; 2020-10-08)
DX: R07.89 Other chest pain (principal)
CPT/HCPCS: 36415; 71046-TC-FY; 80053; 81003; 82550; 83880; 84484; 85025; 87086; 93005; 93010; 99285-25

== ENCOUNTER 2020-11-08 15:37 | Emergency (ER) | payer OTHER ==
[2020-11-08 15:58] VITALS: BP 141/1; PULSE 86; TEMP 98.7; BMI 41.7
== END 2020-11-08 17:14 | disposition home or self-care (01) ==
LOC: JERFT 15:37
DX: S09.90XA Unspecified injury of head, initial encounter (principal)
CPT/HCPCS: 99283-25

== ENCOUNTER 2021-04-30 12:41 | Emergency (ER) | payer OTHER ==
[2021-04-30 12:50] VITALS: PULSE 80; TEMP 98.2; BMI 41.0
[2021-04-30 13:59] VITALS: BP 139/61
[2021-05-01 23:06] LABS: SARS-CoV-2 NAA Not Detected (Not Detected)
== END 2021-04-30 13:59 | disposition home or self-care (01) ==
LOC: FER 12:41
DX: R51.9 Headache, unspecified (principal)
CPT/HCPCS: 99283-25; C9803; U0003; U0005

== ENCOUNTER → 2022-02-19 | Emergency (ER) | payer OTHER ==
[~2022-02-19] MED LIST: ACETAMINOPHEN 1000 MG/100 ML BAG IVPB ONE; ACETAMINOPHEN INJECTION 100 ML IVPB ONE; FAMOTIDINE 20 MG/50 ML IVPB 20 MG/50 ML MG IVPB ONE; MAG HYDROX/AL HYDROX/SIMETH 30 ML UNIT-DOSE CUP ONE; MAG HYDROX/AL HYDROX/SIMETH 30 ML UNIT-DOSE CUP PO ONE
[2022-02-19 18:22] VITALS: BP 153/81; PULSE 77; RESP 17; TEMP 98.1; BMI 38.7
[2022-02-19 21:10] LABS: HEMATOCRIT 40.4 % (32.4-45.2); MCH 29.3 pg (25.7-33.7); MCHC 34.6 g/dl (32.0-36.0); MEAN CELL VOLUME 84.7 fl (80-96); MEAN PLT VOLUME 7.5 fl (7.5-11.1); PLATELET COUNT 251 10^3/uL (134-434); RBC 4.77 M/mm3 (3.60-5.2); RDW 13.7 % (11.6-15.6); WHITE BLOOD COUNT 8.3 K/mm3 (4.0-10.0)
[2022-02-19 21:25] LABS: CALCIUM 9.4 mg/dL (8.5-10.1)
[2022-02-19 21:26] LABS: ALBUMIN 3.4 g/dl (3.4-5.0)
[2022-02-19 21:29] LABS: CREATININE 0.7 mg/dL (0.55-1.3)
[2022-02-19 21:31] LABS: BILIRUBIN,TOTAL 0.3 mg/dL (0.2-1)
== END | disposition left against medical advice (07) ==
LOC: JER 18:04
PROC: 3E033GC Introduction of Other Therapeutic Substance into Peripheral Vein, Percutaneous Approach (ICD-10-PCS; principal; 2022-02-19)
DX: R07.9 Chest pain, unspecified (principal)
CPT/HCPCS: 36415; 71045-TC-FY; 80053; 82962; 84484; 85027; 93005; 93010; 99285-25

== ENCOUNTER 2022-04-12 21:17 | Emergency (ER) | payer OTHER ==
[2022-04-12 21:28] VITALS: BP 160/63; PULSE 76; RESP 18; TEMP 98.3; BMI 38.3
== END 2022-04-12 23:18 | disposition home or self-care (01) ==
LOC: JERFT 21:17
DX: M25.511 Pain in right shoulder (principal); M54.6 Pain in thoracic spine
CPT/HCPCS: 71046-TC-FY; 73030-TC-RT-FY; 99284-25

== ENCOUNTER 2022-06-05 13:36 | Emergency (ER) | payer OTHER ==
[2022-06-05 14:00] VITALS: BP 160/72; PULSE 80; RESP 20; TEMP 98.6; BMI 39.1
[2022-06-05] MEDS ORDERED: FAMOTIDINE 20 MG/50 ML IVPB 20 MG/50 ML MG IVPB ONE ×2 (15:24→16:32)
[2022-06-05] MEDS ORDERED: ONDANSETRON 4 MG/2 ML VIAL IVPUSH ONE (15:24)
[2022-06-05] MEDS ORDERED: ACETAMINOPHEN 1000 MG/100 ML BAG IVPB ONE (15:24)
[2022-06-05] MEDS ORDERED: ACETAMINOPHEN 325 MG TABLET (FP) PO ONE (16:31)
[2022-06-05] MEDS ORDERED: FAMOTIDINE 20 MG TABLET PO ONE (16:31)
[2022-06-05] MEDS ORDERED: ACETAMINOPHEN INJECTION 100 ML IVPB ONE (16:32)
[2022-06-05] MEDS ORDERED: ACETAMINOPHEN 325 MG TABLET (FP) ONE (16:33)
[2022-06-05] MEDS ORDERED: FAMOTIDINE 20 MG TABLET ONE (16:33)
[2022-06-05 16:51] LABS: EOS % 1.8 % (0-4.5); HEMATOCRIT 41.9 % (32.4-45.2); HEMOGLOBIN 14.1 GM/dL (10.7-15.3); LYMPH % 39.2 % (8-40); MCH 28.6 pg (25.7-33.7); MCHC 33.6 g/dl (32.0-36.0); MEAN CELL VOLUME 85.2 fl (80-96); MEAN PLT VOLUME 7.6 fl (7.5-11.1); MONO % 3.8 % (3.8-10.2); NEUT % 54.2 % (42.8-82.8); PLATELET COUNT 252 10^3/uL (134-434); RBC 4.92 M/mm3 (3.60-5.2); RDW 13.5 % (11.6-15.6); WHITE BLOOD COUNT 7.8 K/mm3 (4.0-10.0)
[2022-06-05 17:11] LABS: CALCIUM 9.4 mg/dL (8.5-10.1)
[2022-06-05 17:12] LABS: ALBUMIN 3.6 g/dl (3.4-5.0); BLOOD UREA NITROGEN 8.1 mg/dL (7-18)
[2022-06-05 17:14] LABS: CREATININE 0.6 mg/dL (0.55-1.3)
[2022-06-05 17:16] LABS: BILIRUBIN,TOTAL 0.3 mg/dL (0.2-1); TOT PROT 7.2 g/dl (6.4-8.2)
[2022-06-05] MEDS ORDERED: POTASSIUM CHLORIDE ORAL LIQUID 20 MEQ/15 ML PO ONE (17:32)
[2022-06-05] MEDS ORDERED: POTASSIUM CHLORIDE ORAL LIQUID 20 MEQ/15 ML ONE (17:51)
== END 2022-06-05 20:42 | disposition home or self-care (01) ==
LOC: JER 13:36
DX: R07.89 Other chest pain (principal)
CPT/HCPCS: 36415; 71046-TC-FY; 80053; 83690; 84484; 85025; 93005; 93010; 99285-25

== ENCOUNTER 2022-08-14 15:28 | Emergency (ER) | payer OTHER ==
[2022-08-14 15:39] VITALS: BP 132/79; PULSE 93; RESP 18; TEMP 98.5; BMI 38.3
[2022-08-14] MEDS ORDERED: SODIUM CHLORIDE 1,000 ML IV STA (16:48)
[2022-08-14] MEDS ORDERED: ACETAMINOPHEN 1000 MG/100 ML BAG IVPB ONE (16:49)
[2022-08-14] MEDS ORDERED: ACETAMINOPHEN INJECTION 100 ML IVPB ONE (17:01)
[2022-08-14 17:48] LABS: BASO % 0.8 % (0-2.0); EOS % 0.4 % (0-4.5); HEMATOCRIT 42.1 % (32.4-45.2); HEMOGLOBIN 14.4 GM/dL (10.7-15.3); LYMPH % 38.9 % (8-40); MCH 28.4 pg (25.7-33.7); MCHC 34.1 g/dl (32.0-36.0); MEAN CELL VOLUME 83.4 fl (80-96); MONO % 9.1 % (3.8-10.2); NEUT % 50.8 % (42.8-82.8); PLATELET COUNT 169 10^3/uL (134-434); RBC 5.05 M/mm3 (3.60-5.2); RDW 13.6 % (11.6-15.6); WHITE BLOOD COUNT 4.1 K/mm3 (4.0-10.0)
[2022-08-14 17:51] LABS: EPI CELLS >36 /uL (0-25.1); HYALINE CASTS 2 /uL (0-3.1); URINE APPEARANCE CLOUDY; URINE BACTERIA 2043 /uL (0-1359); URINE BILIRUBIN NEGATIVE (NEGATIVE); URINE COLOR YELLOW; URINE GLUCOSE (UA) NEGATIVE (NEGATIVE); URINE KETONE TRACE (NEGATIVE); URINE LEUK ESTERASE NEGATIVE (NEGATIVE); URINE NITRITE NEGATIVE (NEGATIVE); URINE PROTEIN 1+ (NEGATIVE); URINE WBC 36 /uL (0-25.8)
[2022-08-14 17:55] LABS: URINE RBC 81.1 /uL (0-23.9)
[2022-08-14 18:26] LABS: CALCIUM 9.4 mg/dL (8.5-10.1)
[2022-08-14 18:27] LABS: ALBUMIN 3.5 g/dl (3.4-5.0); BLOOD UREA NITROGEN 9.1 mg/dL (7-18); MAGNESIUM 2.3 mg/dL (1.8-2.4)
[2022-08-14 18:30] LABS: CREATININE 0.7 mg/dL (0.55-1.3)
[2022-08-14 18:31] LABS: BILIRUBIN,TOTAL 0.5 mg/dL (0.2-1); TOT PROT 7.8 g/dl (6.4-8.2)
== END 2022-08-14 18:45 | disposition home or self-care (01) ==
LOC: JERFT 15:28
PROC: 3E033GC Introduction of Other Therapeutic Substance into Peripheral Vein, Percutaneous Approach (ICD-10-PCS; principal; 2022-08-14)
DX: J06.9 Acute upper respiratory infection, unspecified (principal); R50.9 Fever, unspecified; R05.9 Cough, unspecified; R19.7 Diarrhea, unspecified; R21 Rash and other nonspecific skin eruption; Z20.822 Contact with and (suspected) exposure to COVID-19
CPT/HCPCS: 0241U-QW; 36415; 71046-TC-FY; 80053; 81003; 83690; 83735; 84484; 85025; 87086; 93005; 93010; 99285-25

== ENCOUNTER 2022-12-15 15:50 | Emergency (ER) | payer OTHER ==
[2022-12-15 16:14] VITALS: BP 128/67; PULSE 84; RESP 20; TEMP 98; BMI 40.0
== END 2022-12-15 19:30 | disposition home or self-care (01) ==
LOC: JERFT 15:50
DX: I80.3 Phlebitis and thrombophlebitis of lower extremities, unspecified (principal); I83.813 Varicose veins of bilateral lower extremities with pain
CPT/HCPCS: 93970-TC; 99284-25

== ENCOUNTER 2022-12-28 22:28 | Observation (INO) | payer OTHER ==
[2022-12-28] MEDS ORDERED: SODIUM CHLORIDE 0.9% 500 ML INFUS.BAG IV ONE (22:58)
[2022-12-28 23:20] LABS: BASO % 1.3 % (0-2.0); EOS % 1.2 % (0-4.5); HEMATOCRIT 42.5 % (32.4-45.2); HEMOGLOBIN 14.4 GM/dL (10.7-15.3); LYMPH % 37.4 % (8-40); MCH 29.1 pg (25.7-33.7); MCHC 33.8 g/dl (32.0-36.0); MEAN CELL VOLUME 86.1 fl (80-96); MEAN PLT VOLUME 7.9 fl (7.5-11.1); MONO % 3.9 % (3.8-10.2); NEUT % 56.2 % (42.8-82.8); PLATELET COUNT 267 10^3/uL (134-434); RBC 4.94 M/mm3 (3.60-5.2); RDW 13.8 % (11.6-15.6); WHITE BLOOD COUNT 8.5 K/mm3 (4.0-10.0)
[2022-12-28 23:36] LABS: INR 0.96 (0.83-1.09); PROTHROMBIN TIME (PATIENT) 11.1 SEC (9.7-13.0)
[2022-12-28 23:38] LABS: ACTIVATED PTT 28.5 SECONDS (25.2-36.5)
[2022-12-29 00:27] LABS: POTASSIUM 3.4 mmol/L (3.5-5.1)
[2022-12-29 00:32] LABS: ALBUMIN 3.5 g/dl (3.4-5.0); BLOOD UREA NITROGEN 9.9 mg/dL (7-18)
[2022-12-29 00:35] LABS: CREATININE 0.8 mg/dL (0.55-1.3)
[2022-12-29 00:36] LABS: BILIRUBIN,TOTAL 0.2 mg/dL (0.2-1); TOT PROT 7.6 g/dl (6.4-8.2)
[2022-12-29] MEDS ORDERED: POTASSIUM CHLORIDE ORAL LIQUID 20 MEQ/15 ML PO ONE (05:15)
[2022-12-29 05:54] VITALS: RESP 18; BMI 41.1
[2022-12-29] MEDS ORDERED: INSULIN SLIDING SCALE (NOVOLOG) 1 VIAL SQ SCH (07:00)
[2022-12-29] MEDS: ALBUTEROL SO4 0.083% IH SOL 2.5 MG/3 ML VIAL.NEB. NEB SCH ×2 (07:45→11:43)
[2022-12-29] MEDS: INSULIN SLIDING SCALE (NOVOLOG) 1 VIAL SQ SCH ×2 (09:17→11:19)
[2022-12-29] MEDS ORDERED: ENOXAPARIN NA (PORCINE) 40 MG/0.4 ML DISP.SYRIN SQ SCH (10:00)
[2022-12-29] MEDS ORDERED: NICOTINE 7 MG/24 HOURS TOPICAL PATCH TD SCH (10:00)
[2022-12-29 10:30] VITALS: BP 119/73; PULSE 73; TEMP 98.8
[2022-12-29] MEDS ORDERED: POTASSIUM CHLORIDE TABS 20 MEQ TABLET.ER (FP) PO ONE (11:00)
[2022-12-29 13:13] LABS: EPI CELLS >36 /uL (0-25.1); HYALINE CASTS 1 /uL (0-3.1); PH,URINE 5.5 (5.0-8.0); URINE APPEARANCE CLOUDY; URINE BACTERIA 1695 /uL (0-1359); URINE BILIRUBIN NEGATIVE (NEGATIVE); URINE COLOR YELLOW; URINE GLUCOSE (UA) NEGATIVE (NEGATIVE); URINE KETONE NEGATIVE (NEGATIVE); URINE LEUK ESTERASE TRACE (NEGATIVE); URINE NITRITE NEGATIVE (NEGATIVE); URINE PROTEIN NEGATIVE (NEGATIVE); URINE RBC 33 /uL (0-23.9); URINE UROBILINOGEN 0.2 mg/dL (0.2-1.0); URINE WBC 67 /uL (0-25.8)
[2022-12-29 14:35] LABS: COCAINE, UR NEGATIVE (NEGATIVE); OPIATES, URI NEGATIVE (NEGATIVE); PHENCYCLIDINE,URINE NEGATIVE (NEGATIVE); URINE AMPHETAMINES NEGATIVE (NEGATIVE); URINE BARBITURATES NEGATIVE (NEGATIVE)
[2022-12-29 14:38] LABS: METHADONE, UR NEGATIVE (NEGATIVE); URINE BENZODIAZEPINES NEGATIVE (NEGATIVE)
== END 2022-12-29 14:40 | disposition home or self-care (01) ==
LOC: JER 22:28 → JERBED 12-29 02:09 → UNDOADMOB 12-29 02:09 → JERBED 12-29 05:38 → J4W 12-29 05:38 → OBSVTOIN 12-29 05:49 → INTOOBSV 12-29 05:49 → J4W 12-29 09:41 → JERBED 12-29 09:41
PROVIDERS: ADMIT Internal Medicine; ATTEND Internal Medicine
PROC: 3E0337Z Introduction of Electrolytic and Water Balance Substance into Peripheral Vein, Percutaneous Approach (ICD-10-PCS; principal; 2022-12-29)
DX: E07.9 Disorder of thyroid, unspecified (principal); E86.0 Dehydration; E03.9 Hypothyroidism, unspecified; D50.9 Iron deficiency anemia, unspecified; F32.A Depression, unspecified; I86.8 Varicose veins of other specified sites; Z86.16 Personal history of COVID-19; J45.909 Unspecified asthma, uncomplicated; R79.9 Abnormal finding of blood chemistry, unspecified; Z71.6 Tobacco abuse counseling; E05.90 Thyrotoxicosis, unspecified without thyrotoxic crisis or storm; Z88.5 Allergy status to narcotic agent; Z91.013 Allergy to seafood; Z88.8 Allergy status to other drugs, medicaments and biological substances; F17.200 Nicotine dependence, unspecified, uncomplicated
CPT/HCPCS: 36415; 71045-TC-FY; 80053; 80307; 81003; 82962; 83036; 83735; 84439; 84443; 84484; 85025; 85379; 85610; 85730; 93005; 93010; 93306-TC; 99285-25; G0378

== ENCOUNTER 2023-01-16 11:26 | Emergency (ER) | payer OTHER ==
[2023-01-16 11:48] VITALS: BMI 39.6
[2023-01-16] MEDS ORDERED: ACETAMINOPHEN 1000 MG/100 ML BAG IVPB ONE (11:54)
[2023-01-16] MEDS ORDERED: LACTATED RINGERS SOLUTION 1000 ML INFUS.BAG IV ONE (11:54)
[2023-01-16] MEDS ORDERED: ALBUTEROL SO4 2.5/IPRATROPIUM 0.5 INH SOL 3 ML VIAL.NEB. NEB ONE ×2 (11:54→12:09)
[2023-01-16] MEDS ORDERED: MAGNESIUM SULF 50% (8.12 MEQ/2 ML-1 GM VIAL) IVPB ONE (11:55)
[2023-01-16] MEDS ORDERED: methylPREDNISolone NA SUCC 125 MG/2 ML VIAL IVPUSH ONE (11:55)
[2023-01-16] MEDS ORDERED: ACETAMINOPHEN INJECTION 100 ML IVPB ONE (12:09)
[2023-01-16] MEDS ORDERED: MAGNESIUM SULFATE IN WATER 2 GM/50 ML IVPB IVPB ONE (12:09)
[2023-01-16 13:29] LABS: BASO % 0.3 % (0-2.0); EOS % 0.2 % (0-4.5); HEMATOCRIT 41.1 % (32.4-45.2); HEMOGLOBIN 14.1 GM/dL (10.7-15.3); LYMPH % 14.9 % (8-40); MCH 28.6 pg (25.7-33.7); MCHC 34.3 g/dl (32.0-36.0); MEAN CELL VOLUME 83.5 fl (80-96); MEAN PLT VOLUME 7.5 fl (7.5-11.1); MONO % 5.3 % (3.8-10.2); NEUT % 79.3 % (42.8-82.8); PLATELET COUNT 295 10^3/uL (134-434); RBC 4.91 M/mm3 (3.60-5.2); RDW 13.6 % (11.6-15.6); WHITE BLOOD COUNT 12.9 K/mm3 (4.0-10.0)
[2023-01-16 13:57] LABS: POTASSIUM 3.4 mmol/L (3.5-5.1)
[2023-01-16 13:58] LABS: CALCIUM 9.1 mg/dL (8.5-10.1)
[2023-01-16 13:59] LABS: ALBUMIN 3.6 g/dl (3.4-5.0); BLOOD UREA NITROGEN 6.9 mg/dL (7-18)
[2023-01-16 14:01] LABS: MAGNESIUM 1.8 mg/dL (1.8-2.4)
[2023-01-16 14:02] LABS: CREATININE 0.8 mg/dL (0.55-1.3)
[2023-01-16 14:04] LABS: BILIRUBIN,TOTAL 0.5 mg/dL (0.2-1); TOT PROT 7.7 g/dl (6.4-8.2)
[2023-01-16 15:36] VITALS: BP 120/59; PULSE 84; RESP 24; TEMP 99.4
== END 2023-01-16 15:42 | disposition home or self-care (01) ==
LOC: JER 11:26
PROC: 3E033NZ Introduction of Analgesics, Hypnotics, Sedatives into Peripheral Vein, Percutaneous Approach (ICD-10-PCS; principal; 2023-01-16)
PROC: 3E033GC Introduction of Other Therapeutic Substance into Peripheral Vein, Percutaneous Approach (ICD-10-PCS; 2023-01-16)
PROC: 3E0F7GC Introduction of Other Therapeutic Substance into Respiratory Tract, Via Natural or Artificial Opening (ICD-10-PCS; 2023-01-16)
DX: R00.2 Palpitations (principal); R06.02 Shortness of breath; R05.9 Cough, unspecified; J45.909 Unspecified asthma, uncomplicated; R19.7 Diarrhea, unspecified; R06.2 Wheezing; Z20.822 Contact with and (suspected) exposure to COVID-19
CPT/HCPCS: 0241U-QW; 36415; 71046-TC-FY; 80053; 83735; 84439; 84443; 84484; 85025; 93005; 93010; 99285-25

== ENCOUNTER 2023-05-28 18:40 | Emergency (ER) | payer OTHER ==
[2023-05-28] MEDS ORDERED: LACTATED RINGERS SOLUTION 1000 ML INFUS.BAG IV ONE (19:45)
[2023-05-28] MEDS ORDERED: ACETAMINOPHEN 1000 MG/100 ML BAG IVPB ONE (19:45)
[2023-05-28] MEDS ORDERED: METOCLOPRAMIDE HCL INJECTION 10 MG/2 ML VIAL IVPUSH ONE (19:46)
[2023-05-28] MEDS ORDERED: ONDANSETRON 4 MG/2 ML VIAL IVPUSH ONE ×2 (19:46→22:08)
[2023-05-28] MEDS ORDERED: ONDANSETRON 4 MG/2 ML VIAL ONE (19:57)
[2023-05-28] MEDS ORDERED: ACETAMINOPHEN INJECTION 100 ML IVPB ONE (19:57)
[2023-05-28 20:04] VITALS: TEMP 99.4; BMI 40.6
[2023-05-28 20:04] LABS: BASO % 0.6 % (0-2.0); EOS % 1.6 % (0-4.5); HEMATOCRIT 44.3 % (32.4-45.2); HEMOGLOBIN 15.1 GM/dL (10.7-15.3); LYMPH % 19.7 % (8-40); MCH 28.5 pg (25.7-33.7); MCHC 34.2 g/dl (32.0-36.0); MEAN CELL VOLUME 83.5 fl (80-96); MONO % 5.1 % (3.8-10.2); PLATELET COUNT 247 10^3/uL (134-434); RDW 13.6 % (11.6-15.6); WHITE BLOOD COUNT 8.5 K/mm3 (4.0-10.0)
[2023-05-28 20:08] LABS: INR 1.05 (0.83-1.09); PROTHROMBIN TIME (PATIENT) 12.2 SEC (9.7-13.0)
[2023-05-28 20:25] LABS: POTASSIUM 3.1 mmol/L (3.5-5.1)
[2023-05-28 20:27] LABS: CALCIUM 9.9 mg/dL (8.5-10.1)
[2023-05-28 20:28] LABS: ALBUMIN 3.6 g/dl (3.4-5.0)
[2023-05-28 20:31] LABS: CREATININE 0.7 mg/dL (0.55-1.3)
[2023-05-28 20:32] LABS: BILIRUBIN,TOTAL 0.6 mg/dL (0.2-1)
[2023-05-28] MEDS ORDERED: POTASSIUM CHLORIDE ORAL LIQUID 20 MEQ/15 ML PO ONE (20:46)
[2023-05-28] MEDS ORDERED: POTASSIUM CHLORIDE ORAL LIQUID 20 MEQ/15 ML ONE (20:52)
[2023-05-28] MEDS ORDERED: IPRATROPIUM BR 0.02% 0.5 MG/2.5 ML VIAL.NEB. NEB ONE ×4 (20:53→21:14)
[2023-05-28 21:51] LABS: MAGNESIUM 2.1 mg/dL (1.8-2.4)
[2023-05-28 22:23] VITALS: BP 132/80; PULSE 88; RESP 18
== END 2023-05-28 22:23 | disposition home or self-care (01) ==
LOC: JER 18:40
PROC: 3E033NZ Introduction of Analgesics, Hypnotics, Sedatives into Peripheral Vein, Percutaneous Approach (ICD-10-PCS; principal; 2023-05-28)
PROC: 3E0F7GC Introduction of Other Therapeutic Substance into Respiratory Tract, Via Natural or Artificial Opening (ICD-10-PCS; 2023-05-28)
PROC: 3E0F7GC Introduction of Other Therapeutic Substance into Respiratory Tract, Via Natural or Artificial Opening (ICD-10-PCS; 2023-05-28)
DX: R00.2 Palpitations (principal); R42 Dizziness and giddiness; R05.1 Acute cough; R50.9 Fever, unspecified; J45.909 Unspecified asthma, uncomplicated; E03.9 Hypothyroidism, unspecified; Z20.822 Contact with and (suspected) exposure to COVID-19
CPT/HCPCS: 0241U-QW; 36415; 71046-TC-FY; 80053; 83735; 84443; 84484; 85025; 85610; 85730; 93005; 93010; 99285-25

== ENCOUNTER 2023-07-06 17:11 | Emergency (ER) | payer OTHER ==
[2023-07-06 17:27] VITALS: BP 126/80; PULSE 99; RESP 16; TEMP 98.4; BMI 37.0
[2023-07-06] MEDS ORDERED: LIDOCAINE HCL 2% JELLY 6 ML TP ONE (19:45)
[2023-07-06] MEDS ORDERED: LIDOCAINE HCL 2% JELLY 10 ML CARTRIDGE PR ONE (19:54)
== END 2023-07-06 20:40 | disposition home or self-care (01) ==
LOC: JER 17:11
DX: K59.00 Constipation, unspecified (principal); K62.5 Hemorrhage of anus and rectum
CPT/HCPCS: 99283-25

== ENCOUNTER 2023-10-14 02:10 | Emergency (ER) | payer OTHER ==
[2023-10-14 02:25] VITALS: BP 141/77; PULSE 72; RESP 20; TEMP 98.2; BMI 35.5
[2023-10-14] MEDS ORDERED: ACETAMINOPHEN 325 MG TABLET (FP) ONE (03:09)
[2023-10-14] MEDS: ACETAMINOPHEN 325 MG TABLET (FP) PO ONE (03:24)
[2023-10-14 03:40] LABS: BASO % 0.7 % (0-2.0); EOS % 1.9 % (0-4.5); HEMATOCRIT 42.3 % (32.4-45.2); HEMOGLOBIN 14.2 GM/dL (10.7-15.3); LYMPH % 40.6 % (8-40); MCH 28.8 pg (25.7-33.7); MCHC 33.6 g/dl (32.0-36.0); MEAN CELL VOLUME 85.7 fl (80-96); MEAN PLT VOLUME 8.3 fl (7.5-11.1); MONO % 5.5 % (3.8-10.2); NEUT % 51.3 % (42.8-82.8); PLATELET COUNT 250 10^3/uL (134-434); RBC 4.93 M/mm3 (3.60-5.2); RDW 14.7 % (11.6-15.6); WHITE BLOOD COUNT 8.4 K/mm3 (4.0-10.0)
[2023-10-14 03:50] LABS: PROTHROMBIN TIME (PATIENT) 11.3 SEC (9.7-13.0)
[2023-10-14 04:00] LABS: POTASSIUM 3.6 mmol/L (3.5-5.1)
[2023-10-14 04:02] LABS: ALBUMIN 3.6 g/dl (3.4-5.0); BLOOD UREA NITROGEN 10.1 mg/dL (7-18); CALCIUM 9.3 mg/dL (8.5-10.1)
[2023-10-14 04:05] LABS: CREATININE 0.6 mg/dL (0.55-1.3)
[2023-10-14 04:07] LABS: BILIRUBIN,TOTAL 0.4 mg/dL (0.2-1); TOT PROT 7.2 g/dl (6.4-8.2)
== END 2023-10-14 04:57 | disposition home or self-care (01) ==
LOC: JER 02:10
DX: R00.2 Palpitations (principal); J45.901 Unspecified asthma with (acute) exacerbation; R05.9 Cough, unspecified; F17.200 Nicotine dependence, unspecified, uncomplicated
CPT/HCPCS: 36415; 71046-TC-FY; 80053; 82550; 83735; 84484; 85025; 85610; 85730; 93005; 93010; 99285-25

== ENCOUNTER 2024-01-17 12:18 | Emergency (ER) | payer OTHER ==
[2024-01-17 12:42] VITALS: BP 139/80; PULSE 82; RESP 19; TEMP 98.4; BMI 36.2
[2024-01-17 13:57] LABS: BASO % 0.5 % (0-2.0); EOS % 2.1 % (0-4.5); HEMATOCRIT 44.8 % (32.4-45.2); HEMOGLOBIN 15.1 GM/dL (10.7-15.3); LYMPH % 33.2 % (8-40); MCH 29.2 pg (25.7-33.7); MCHC 33.6 g/dl (32.0-36.0); MEAN CELL VOLUME 86.8 fl (80-96); MONO % 4.2 % (3.8-10.2); PLATELET COUNT 254 10^3/uL (134-434); RBC 5.16 M/mm3 (3.60-5.2); WHITE BLOOD COUNT 7.6 K/mm3 (4.0-10.0)
[2024-01-17 14:05] LABS: INR 0.95 (0.83-1.09); PROTHROMBIN TIME (PATIENT) 10.8 SEC (9.7-13.0)
[2024-01-17] MEDS ORDERED: ACETAMINOPHEN INJECTION 100 ML ONE (14:05)
[2024-01-17 14:08] LABS: ACTIVATED PTT 30.5 SECONDS (25.2-36.5)
[2024-01-17 14:11] LABS: CALCIUM 10.5 mg/dL (8.5-10.1)
[2024-01-17 14:12] LABS: BLOOD UREA NITROGEN 11.1 mg/dL (7-18)
[2024-01-17 14:15] LABS: CREATININE 0.6 mg/dL (0.55-1.3)
[2024-01-17 14:17] LABS: BILIRUBIN,TOTAL 0.4 mg/dL (0.2-1); TOT PROT 7.9 g/dl (6.4-8.2)
[2024-01-17] MEDS: ACETAMINOPHEN 1000 MG/100 ML BAG IVPB ONE (14:17)
[2024-01-17] MEDS: SODIUM CHLORIDE 1,000 ML IV STA (14:17)
[2024-01-17 15:04] LABS: HIV INTERPRETATION NEGATIVE (NEGATIVE)
== END 2024-01-17 14:53 | disposition home or self-care (01) ==
LOC: JER 12:18
PROC: 3E033NZ Introduction of Analgesics, Hypnotics, Sedatives into Peripheral Vein, Percutaneous Approach (ICD-10-PCS; principal; 2024-01-17)
PROC: 3E0337Z Introduction of Electrolytic and Water Balance Substance into Peripheral Vein, Percutaneous Approach (ICD-10-PCS; 2024-01-17)
DX: G45.9 Transient cerebral ischemic attack, unspecified (principal); Z20.822 Contact with and (suspected) exposure to COVID-19
CPT/HCPCS: 0241U-QW; 36415; 70450-TC; 80053; 84484; 85025; 85610; 85730; 86803; 87389; 93005; 93010; 99285-25; J0131

== ENCOUNTER 2024-05-26 14:26 | Emergency (ER) | payer OTHER ==
[2024-05-26 14:36] VITALS: BP 156/80; PULSE 87; RESP 19; TEMP 98.8; BMI 37.2
[2024-05-26] MEDS ORDERED: FAMOTIDINE 20 MG TABLET ONE (15:33)
[2024-05-26] MEDS ORDERED: MAG HYDROX/AL HYDROX/SIMETH 30 ML UNIT-DOSE CUP ONE (15:33)
[2024-05-26] MEDS: FAMOTIDINE 20 MG TABLET PO ONE (15:34)
[2024-05-26] MEDS: MAG HYDROX/AL HYDROX/SIMETH 30 ML UNIT-DOSE CUP PO ONE (15:34)
[2024-05-26 15:46] LABS: BASO % 0.7 % (0-2.0); EOS % 1.7 % (0-4.5); HEMATOCRIT 44.3 % (32.4-45.2); LYMPH % 28.5 % (8-40); MCH 28.9 pg (25.7-33.7); MCHC 33.7 g/dl (32.0-36.0); MEAN CELL VOLUME 85.5 fl (80-96); MEAN PLT VOLUME 7.5 fl (7.5-11.1); MONO % 5.2 % (3.8-10.2); NEUT % 63.9 % (42.8-82.8); PLATELET COUNT 277 10^3/uL (134-434); RBC 5.18 M/mm3 (3.60-5.2); RDW 13.8 % (11.6-15.6); WHITE BLOOD COUNT 8.1 K/mm3 (4.0-10.0)
[2024-05-26 16:08] LABS: POTASSIUM 3.8 mmol/L (3.5-5.1)
[2024-05-26 16:11] LABS: ALBUMIN 3.8 g/dl (3.4-5.0); BLOOD UREA NITROGEN 10.6 mg/dL (7-18); MAGNESIUM 2.1 mg/dL (1.8-2.4)
[2024-05-26 16:14] LABS: BILIRUBIN,TOTAL 0.3 mg/dL (0.2-1); CREATININE 0.6 mg/dL (0.55-1.3)
[2024-05-26 16:16] LABS: TOT PROT 7.9 g/dl (6.4-8.2)
== END 2024-05-26 17:48 | disposition home or self-care (01) ==
LOC: JER 14:26
DX: R00.2 Palpitations (principal); R10.13 Epigastric pain; Z20.822 Contact with and (suspected) exposure to COVID-19
CPT/HCPCS: 0241U-QW; 36415; 80053; 83690; 83735; 84439; 84443; 84484; 85025; 93005; 93010; 99284-25